=== PATIENT | male | born 1985 | race Caucasian/White ===

== ENCOUNTER 2019-05-20 10:36 | Inpatient (IN) | payer BC ==
[~2019-05-20] VITALS: Ht 185.4 cm; Wt 91.2 kg
[2019-05-20 10:57] VITALS: BP 139/98
--- NOTE | 2019-05-20 11:03 | NUR ---
TO BED 1 WITH STEADY GAIT
[2019-05-20] MEDS ORDERED: [UNRECOGNIZED DRUG - CODE] PO (11:04)
--- NOTE | 2019-05-20 11:05 | NUR ---
BIB SELF. AAO X4 LEFT CALF PAIN EXACERBATED BY AMBULATION X 4 DAYS. PT DENIES RECENT TRAUMA/INJURY. NO SWELLING, NO REDNESS TO LEFT CALF. DENIES SOB. PT AMBULATES WITH GUARDED STEADY GAIT.
--- NOTE | 2019-05-20 11:53 | NUR ---
DR RUELAS AT BEDSIDE FOR PT EVAL
--- NOTE | 2019-05-20 12:32 | NUR ---
PT AMBULATED TO THE BATHROOM WITH STEADY GAIT TO GIVE URINE SPECIMEN
[2019-05-20 12:33] LABS: BASOPHILS % (AUTO) 0.5 % (0.0-2.0); EOSINOPHILS # (AUTO) 0.4 K/uL (0-0.4); EOSINOPHILS % (AUTO) 5.9 % (0.0-4.0); HEMATOCRIT 45.9 % (36-52); HEMOGLOBIN 15.6 g/dL (12.0-18.0); LYMPHOCYTES # (AUTO) 1.3 K/uL (2.0-11.5); MEAN CORPUSCULAR HEMOGLOBIN 29 pg (27-31); MEAN CORPUSCULAR HGB CONC 34 g/dL (33-37); MEAN CORPUSCULAR VOLUME 84.8 fL (80-94); MONOCYTES # (AUTO) 0.4 K/uL (0.8-1.0); MONOCYTES % (AUTO) 6.7 % (1.7-9.3); NEUTROPHILS # (AUTO) 4.2 K/uL (1.8-7.7); NEUTROPHILS % (AUTO) 65.9 % (42.2-75.2); PLATELET COUNT (AUTO) 214 K/uL (140-450); RED BLOOD CELL COUNT(AUTO) 5.41 MIL/uL (4.20-6.10); RED CELL DISTRIBUTION WIDTH 13.2 % (11.6-13.7); WHITE BLOOD COUNT (AUTO) 6.4 K/uL (4.8-10.8)
[2019-05-20 13:26] LABS: APPEARANCE,URINE CLEAR (CLEAR); BILIRUBIN,URINE NEGATIVE (NEGATIVE); BLOOD, URINE NEGATIVE (NEGATIVE); COLOR,URINE YELLOW (YELLOW); LEUKOCYTE ESTERASE ,URINE NEGATIVE (NEGATIVE); NITRITE, URINE NEGATIVE (NEGATIVE); PH,URINE 5.5 (5.0-9.0); UGLUCOSE NEGATIVE (NEGATIVE)
[2019-05-20] MEDS ORDERED: LOVENOX 1MG/KG Q24H SUBQ SCH (13:30)
[2019-05-20 13:37] LABS: ANION GAP 16.3 (8-16); POTASSIUM 4.3 mmol/L (3.5-5.1)
[2019-05-20 13:38] LABS: CREATININE 1.2 mg/dL (0.7-1.3)
[2019-05-20 13:53] LABS: ALBUMIN 3.8 g/dL (3.4-5.0); TOTAL BILIRUBIN 0.4 mg/dL (0.0-1.0)
[2019-05-20] MEDS ORDERED: hePARIN / DEXT 5% PREMIX 250 ML IV SCH ×2 (14:20→17:00)
[2019-05-20] MEDS ORDERED: NACL 0.9% 1,000 ML IV SCH (14:20)
[2019-05-20] MEDS ORDERED: HYDROcodone/APAP 7.5/325 MG 1 TAB PO PRN (14:20)
[2019-05-20] MEDS ORDERED: ONDANSETRON 4 MG/2 ML VIAL IVP PRN (14:20)
[2019-05-20] MEDS ORDERED: ACETAMINOPHEN 325 MG TAB PO PRN (14:20)
[2019-05-20] MEDS ORDERED: HEPARIN PER PHARMACY MC PRN (14:20)
[2019-05-20 14:25] VITALS: BP 131/83
--- NOTE | 2019-05-20 14:25 | NUR ---
RECEIVED REPORT FROM EMERGENCY ROOM NURSE FOR CONTINUITY OF CARE. PT IN STABLE CONDITION. RESPIRATIONS EVEN AND UNLABORED. IV IN TACT. SAFETY MEASURES IN PLACE. BED IN LOW POSITION. WILL CONTINUE TO MONITOR.
[2019-05-20 14:43] LABS: BARBITURATE, URINE NEG. ng/ml (NEG <=200); BENZODIAZEPINE, URINE NEG. ng/mL (NEG <=200); CANNABINOID, URINE NEG. ng/mL (NEG <=50); COCAINE, URINE NEG. ng/mL (NEG <=300); OPIATE, URINE NEG. ng/mL (NEG <=2000); PHENCYCLIDINE SCREEN,URINE NEG. ng/mL (NEG <=25)
--- NOTE | 2019-05-20 14:49 | NUR ---
RECEIVED PHONE CALL FROM PT'S MOTHER, BRIANNA. PT GAVE VERBAL CONSENT TO GIVE INFORMATION.
--- NOTE | 2019-05-20 15:06 | NUR ---
CALLED PHARMACY AGAIN FOR PT'S LOVENOX. SPOKE TO JOSELINE, PHARMACIST AND SHE "SPOKE TO ADMITTING DR ON THE FLOOR THAT IF LOVENOX IS GIVEN, THEN HEPARIN CANNOT BE STARTED UNTIL 12 HOURS AFTER. PHARMACIST CALLED DR RUELAS WELL. DR RUELAS AGREED."
--- NOTE | 2019-05-20 15:30 | NUR ---
MOTHER OF PT TALKING TO DR. HAGEN ON THE PHONE. ALL QUESTIONS ANSWERED AT THIS TIME.
[2019-05-20 16:22] LABS: PROTHROMBIN TIME 10.4 secs (10.8-13.4)
[2019-05-20 17:02] LABS: FREE T4 (FREE THYROXINE) 0.89 ng/dL (0.76-1.46); PHOSPHORUS 2.9 mg/dL (2.5-4.9); THYROID STIMULATING HORMONE 2.04 uIU/mL (0.34-3.74)
--- NOTE | 2019-05-20 17:35 | NUR ---
PT LYING IN BED WITH FAMILY AT BEDSIDE. RESPIRATIONS EVEN AND UNLABORED. CALL LIGHT AT BEDSIDE. BED IN LOW POSITION.
--- NOTE | 2019-05-20 19:00 | NUR ---
STARTED HEPARIN DRIP AT THIS TIME, PT TOLERATED WELL. RESPIRATIONS EVEN AND UNLABORED. CALL LIGHT AT BEDSIDE. BED IN LOW POSITION.
--- NOTE | 2019-05-20 19:13 | NUR ---
GAVE REPORT TO CRACK OFF PERSON NURSE ELISE FOR CONTINUITY OF CARE. PT IN STABLE CONDITION.
--- NOTE | 2019-05-20 19:14 | NUR ---
RECEIVED PT ON BED TALKING TO FAMILY MEMBERS AT BEDSIDE, VITAL SIGNS STABLE, DENIES ANY PAIN EXCEPT FOR LEFT LEG PAIN ON WALKING OR STANDING, POSITIVE PEDAL PULSES AND GOOD CAP REFILL, ON HEPARIN DRIP AT 1600 UNITS/HR, HEPARIN PROTOCOL IN PLACE, PLAN OF CARE DISCUSSED, SAFETY MEASURES IN PLACE, CALL LIGHT WITHIN REACH.
[2019-05-20 20:00] VITALS: BP 128/76
[2019-05-20] MEDS: DOCUSATE SODIUM 100 MG GELCAP PO SCH (20:52)
--- NOTE | 2019-05-20 20:55 | NUR ---
PT REFUSED DUE COLACE, STATED I DON'T NEED THAT, RISK AND BENEFITS EXPLAINED, ALL NEEDS ATTENDED.
--- NOTE | 2019-05-20 22:10 | NUR ---
ROUNDS MADE, PT AWAKE TALKING TO AT BEDSIDE, DENIES ANY PAIN, HEPARIN DRIP INFUSING, MONITORED CLOSELY.
[2019-05-21] VITALS: BP 111/58
--- NOTE | 2019-05-21 | NUR ---
PT SLEEPING, EASILY AROUSABLE, VITAL SIGNS STABLE, DENIES ANY PAIN, NO SOB NOTED, PT WENT BACK TO SLEEP, CONTINUE TO MONITOR CLOSELY.
--- NOTE | 2019-05-21 03:38 | NUR ---
PTS HR DROPPED TO LOW 40'S BPM, PT SEEN SLEEPING, EASILY AROUSABLE, HR WENT UP IN THE 50'S WHEN AWAKE, BP WNL, DENIES ANY PAIN, NO SOB NOTED, HEPARIN DRIP INFUSING WELL AT 1600 UNITS/HOUR, MONITORED CLOSELY.
[2019-05-21 04:00] VITALS: BP 114/66
--- NOTE | 2019-05-21 06:00 | NUR ---
PT SLEEPING, NO SIGNS OF DISTRESS, HEPARIN DRIP INFUSING WELL AT 1600 UNITS/H
[2019-05-21 07:15] LABS: BASOPHILS # (AUTO) 0.1 K/uL (0.00-0.22); EOSINOPHILS # (AUTO) 0.3 K/uL (0-0.4); EOSINOPHILS % (AUTO) 6.1 % (0.0-4.0); HEMATOCRIT 45.1 % (36-52); HEMOGLOBIN 15.5 g/dL (12.0-18.0); LYMPHOCYTES # (AUTO) 1.3 K/uL (2.0-11.5); LYMPHOCYTES % (AUTO) 22.4 % (20.5-51.1); MEAN CORPUSCULAR HEMOGLOBIN 29 pg (27-31); MEAN CORPUSCULAR HGB CONC 35 g/dL (33-37); MEAN CORPUSCULAR VOLUME 85.1 fL (80-94); MONOCYTES # (AUTO) 0.4 K/uL (0.8-1.0); MONOCYTES % (AUTO) 7.3 % (1.7-9.3); NEUTROPHILS # (AUTO) 3.5 K/uL (1.8-7.7); NEUTROPHILS % (AUTO) 63.2 % (42.2-75.2); PLATELET COUNT (AUTO) 200 K/uL (140-450); RED BLOOD CELL COUNT(AUTO) 5.29 MIL/uL (4.20-6.10); RED CELL DISTRIBUTION WIDTH 13.1 % (11.6-13.7); WHITE BLOOD COUNT (AUTO) 5.6 K/uL (4.8-10.8)
--- NOTE | 2019-05-21 07:20 | NUR ---
PT AWAKE, NO SIGNS OF DISTRESS, REPORT GIVEN TO SUKHI ESCALANTE FOR CONTINUITY OF CARE.
--- NOTE | 2019-05-21 07:21 | NUR ---
RECEIVED REPORT FROM CORRECTIVE THERAPY AIDE TEACHER NURSE. PT IN BED RESTING. VITAL SIGNS STABLE, DENIES ANY PAIN EXCEPT FOR LEFT LEG PAIN ON WALKING OR STANDING, POSITIVE PEDAL PULSES AND GOOD CAP REFILL, ON HEPARIN DRIP AT 1600 UNITS/HR, HEPARIN PROTOCOL IN PLACE. PLAN OF CARE DISCUSSED WITH PT, PT VERBALIZED UNDERSTANDING. SAFETY MEASURES IN PLACE, CALL LIGHT WITHIN REACH. WILL MONITOR PT CLOSELY.
[2019-05-21 07:31] LABS: ANION GAP 10.5 (8-16); CARBON DIOXIDE 27.6 mmol/L (21-32); CREATININE 1.2 mg/dL (0.7-1.3); POTASSIUM 4.1 mmol/L (3.5-5.1)
[2019-05-21 07:48] LABS: CHOL/HDL RATIO 6.7 (1-4.5)
[2019-05-21 08:05] VITALS: BP 118/73
[2019-05-21] MEDS: DOCUSATE SODIUM 100 MG GELCAP PO SCH (08:12)
--- NOTE | 2019-05-21 08:45 | NUR ---
PATIENT HAS BEEN SCREENED AND CATEGORIZED LOW NUTRITION RISK. PATIENT WILL BE SEEN WITHIN 7 DAYS OF ADMISSION. 05/27/[address]
[2019-05-21] MEDS ORDERED: RIVAROXABAN 15 MG TAB PO SCH (09:00)
[2019-05-21] MEDS ORDERED: KETOCONAZOLE 200 MG PO SCH (09:00)
--- NOTE | 2019-05-21 09:12 | NUR ---
ADMINISTERED MORNING MEDS TO PT. PT TOLERATED MEDS WELL. WILL CONTINUE TO ROUND FREQUENTLY ON PT. NO COMPLAINTS OF PAIN OR DISTRESS. BED IN LOW POSITION, CALL LIGHT WITHIN REACH.
[2019-05-21] MEDS ORDERED: RIVA15TA1 PO (09:51)
--- NOTE | 2019-05-21 10:40 | NUR ---
PT DISCHARGED HOME FOR SELF CARE. PT DISCHARGE PAPERWORK EXPLAINED TO PT AND PT VERBALIZED UNDERSTANDING OF TEACHING. INSTRUCTED PT ON APPT WITH DR. HAGEN. ALSO INSTRUCTED PT ON TAKING MEDS FOR DVT TREATMENT. PT VERBALIZED UNDERSTANDING. PT SIGNED ALL DISCHARGE PAPERWORK. IV REMOVED WITH TIP INTACT. WRIST BAND REMOVED AND PLACED IN SHRED BIN. ALL PERSONAL BELONGINGS TAKEN HOME WITH PT. PT LEFT IN STABLE CONDITION ACCOMPANIED BY .
== END 2019-05-21 11:50 | disposition home or self-care (01) | DRG 301 ==
LOC: MED 10:36 → MTU 14:19
PROVIDERS: ADMIT Family Medicine; ATTEND Family Medicine
DX: I82.432 Acute embolism and thrombosis of left popliteal vein (principal)
CPT/HCPCS: 36415; 71045; 73590; 80048; 80053; 80305; 81003; 82150; 83036; 83690; 83735; 83880; 84100; 84439; 84443; 84484; 85025; 85379; 85610; 85730; 87081; 93971; 99285; J1644; J7030; Q0092

== ENCOUNTER 2019-10-04 09:13 | Emergency (ER) | payer BC ==
[~2019-10-04] VITALS: Ht 185.4 cm; Wt 93.1 kg
[~2019-10-04 09:13] MED LIST: RIVA15TA1 PO
[2019-10-04 09:39] VITALS: BP 131/86
--- NOTE | 2019-10-04 09:43 | NUR ---
PT AMBULATED TO LOBBY, VSS
--- NOTE | 2019-10-04 11:41 | NUR ---
Dr. Amador is re-evaluating the patient at bedside.
[2019-10-04 12:11] VITALS: BP 131/83
--- NOTE | 2019-10-04 12:11 | NUR ---
Patient discharged with v/s stable. Written and verbal after care instructions given and explained. Patient alert, oriented and verbalized understanding of instructions. Ambulatory with steady gait. All questions addressed prior to discharge. ID band removed. Patient advised to follow up with PMD. Rx of xarelto 15mg and xarelto 20mg given. Patient educated on indication of medication including possible reaction and side effects. Opportunity to ask questions provided and answered.
== END 2019-10-04 12:11 | disposition home or self-care (01) ==
LOC: MED 09:13
DX: I82.402 Acute embolism and thrombosis of unspecified deep veins of left lower extremity (principal); Z79.899 Other long term (current) drug therapy
CPT/HCPCS: 93971; 99284; Q0092